=== PATIENT | female | born 2000 | race American Indian/Alaskan Native ===

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

== ENCOUNTER 2020-07-26 22:48 | Inpatient (IN) | payer MEDICAID ==
[2020-07-26] MEDS: Lactated Ringers 1,000 ML IV SCH (23:20)
[2020-07-26] MEDS ORDERED: Clindamycin Phosphate 900 MG in Sodium Chloride 0.9% 100 ML IV ONE (23:27)
[2020-07-27] MEDS ORDERED: Carboprost Tromethamine 250 MCG/1 ML Amp IM PRN ×2 (00:07→07:39)
[2020-07-27] MEDS ORDERED: Misoprostol 400 MCG (4 X 100 MCG TAB) RECTAL PRN ×2 (00:07→07:39)
[2020-07-27] MEDS ORDERED: fentaNYL 100 MCG/2 ML SDV IVPUSH PRN (00:07)
[2020-07-27] MEDS ORDERED: Ondansetron 4 MG/2 ML SDV IVPUSH PRN (00:07)
[2020-07-27] MEDS ORDERED: Lactated Ringers 1,000 ML IV ONE (00:07)
[2020-07-27] MEDS ORDERED: Methylergonovine 0.2 MG/1 ML Amp IM PRN (00:07)
[2020-07-27] MEDS ORDERED: Tranexamic Acid 1,000 MG in Sodium Chloride 0.9% 100 ML IV PRN ×2 (00:07→07:39)
[2020-07-27] MEDS ORDERED: Lidocaine 1% 30 ML SDV INJECT PRN (00:07)
[2020-07-27] MEDS ORDERED: Sodium Chloride 0.9% 10 ML Syringe FLUSH PRN ×2 (00:07→07:39)
[2020-07-27] MEDS ORDERED: Acetaminophen 325 MG Tab PO PRN ×2 (00:07→07:39)
[2020-07-27] MEDS ORDERED: fentaNYL 100 MCG/2 ML SDV ONE ×2 (00:09→03:53)
[2020-07-27] MEDS ORDERED: Oxytocin/Normal Saline 30 UNIT/500 ML BAG IV SCH (00:15)
[2020-07-27] MEDS ORDERED: Diphtheria,Pertussis(Acell),Tetanus Vaccine 0.5 ML SDV IM ONE (00:24)
--- NOTE | 2020-07-27 01:42 | HP ---
CHIEF COMPLAINT: Increased force and frequency of contractions. HISTORY OF PRESENT ILLNESS: A 20-year-old 1, para 0, currently at 39- 0/7 weeks' gestation, presents to Labor and Delivery reporting contractions starting around 7 o'clock in the evening that have become closer and stronger together. No leakage of fluid. No vaginal bleeding. movement has been good, and she reports overall an uncomplicated without symptoms of preeclampsia. She does have an intermittent cough, but denies any other known COVID potential symptoms. OBSTETRICAL HISTORY: Last menstrual period 11/02/2019. EDC 08/08/2020, however, working due date is an 11-week 5-day ultrasound with EDC 08/02/2020. She has chronic hepatitis C. Last quantitative HCG I saw was back in December. She has had nothing recent. She is admitting to use of tobacco, methamphetamine, and marijuana. Otherwise, no specific risk factors identified. OBSTETRICAL LABS: Blood type O positive. Antibody screen negative. Rubella nonimmune. Syphilis serology was nonreactive. Hepatitis B negative. HIV negative. Gonorrhea and chlamydia negative. Hepatitis C was reactive. Wet prep was positive for clue cells and yeast back in December. Only visits were at [facility], [address] Kraus, [address] Tate. The patient denies any visits out of [place]. PAST MEDICAL HISTORY: 1. Chronic hepatitis C without complications. 2. Polysubstance use, marijuana, and methamphetamine. 3. Tobacco abuse. FAMILY HISTORY: One sister with a history of miscarriages. Otherwise, reports siblings, parents, and grandparents are all alive and well. No history of any bleeding problems, clotting disorders, or defects. PAST SURGICAL HISTORY: None. SOCIAL HISTORY: Lives at [address] [place] [address], [address] in [place]. Stays with her sister and brother. There are no pets in the home. Father of the baby is Magdaleno Tellez. He is aware and will be involved with , but freedom she is asking for her mother to be here as her labor support person. She is currently unemployed. Reports that she is not working with [employer] or any other specific social programs. MEDICATION: vitamin 1 daily. ALLERGIES: Amoxicillin without known reaction. REVIEW OF SYSTEMS: As per the history of present illness. She denies any fevers, chills, nausea, vomiting, diarrhea, constipation, skin rashes, headaches, blurry vision, right upper quadrant pain, lower extremity edema, or any other symptoms of illness. OBJECTIVE: Vital Signs: Blood pressure 167/98, pulse of 86, temperature is 99.4, recheck blood pressure 149/91. HEENT: Grossly unremarkable. Neck: Supple. No adenopathy. Heart: Regular without murmur. Lungs: Clear to auscultation bilaterally with intermittent cough. Abdomen: Gravid, soft, nontender. Positive bowel sounds. Baby is cephalic. heart tones tracing 150 beats per minute at baseline. Moderate beat-to- beat variability with accelerations noted when we are able to trace baby well. [place] showing contractions every minute and a half to 2 minutes. Cervix is 2.5 cm dilated, 95% effaced, very posterior. Bag of munoz is intact. Extremities: No edema, erythema, or tenderness noted. Neurological: No obvious focal deficits. LABORATORY DATA: White blood cell count 14.5, hemoglobin 11.9, hematocrit 35.7, and platelet count 347. Rapid COVID test is negative. ASSESSMENT: 1. 39-0/7 weeks' intrauterine in active labor. 2. Methamphetamine use reported last 2 days ago. 3. Marijuana use, reportedly used once weekly. 4. Smoker 1/2 pack per day. 5. Chronic hepatitis C without known complication. No recent quantitative level. 6. Rubella nonimmune. The patient reports she did receive her Tdap and influenza vaccines this season. Most recent recheck blood pressure 162/108. PLAN: The patient admitted to Labor and Delivery with an anticipation of normal progression of labor. We will have the preeclampsia labs and verify if she is preeclamptic or not. The patient was seen yesterday on Labor and Delivery and discharged home assumingly with normal blood pressures at that time, but we will review those records to verify. Blood pressure was 129/87 yesterday. So, hopefully this is just a pain response and not preeclampsia. [facility] /[id number]
[2020-07-27] MEDS ORDERED: Labetalol 20 MG/4 ML Syringe IVPUSH ONE (01:43)
[2020-07-27] MEDS ORDERED: EPINEPHrine 1 MG/1 ML Amp ONE ×2 (03:50→03:53)
[2020-07-27] MEDS ORDERED: fentaNYL 100 MCG/2 ML SDV ITHECAL ONE (03:50)
[2020-07-27] MEDS: Lactated Ringers 1,000 ML IV SCH (04:14)
--- NOTE | 2020-07-27 04:34 | PCM.PRNOTE ---
- Free Text/Narrative Note: Requested to provide analgesia to full term patient in severe pain. Upon entering the room, patient is sitting on edge of bed complaining of severe abdominal/pelvic pain and discomfort. Procedure was discussed with patient including adverse outcomes and expectations. Pt consented to analgesia, SAB/IT. Pt placed into a proper sitting position. Landmarks for SAB/IT were identified and marked. Hands were washed and appropriate PPE was applied. Back was prepped with betadine x3. A sterile, transparent, fenestrated drape was applied. Excess betadine was removed. Using 3 mL of a 1% lidocaine solution, a skin wheel was placed at the L2/L3 interspace. A 24 ga (4 inch) [place] spinal needle was inserted until positive for CSF. Negative for heme or paresthesias. Injected fentanyl 20 mcg, sufentanil 20 mcg, and 7.5 mg of a 0.75% bupivacaine solution with an epi wash. Pt was placed left lateral tilt position for approximately 20 minutes. There were zero complications or adverse outcomes. Will continue to monitor. Procedure Date & Time: 07/27/20 [id number]
[2020-07-27] MEDS ORDERED: Simethicone 80 MG Tab.Chew PO PRN (07:39)
[2020-07-27] MEDS ORDERED: Benzocaine/Menthol 20%-0.5% Spray 56 GM Canister TOP PRN (07:39)
[2020-07-27] MEDS ORDERED: Oxytocin 10 Units/1 ML SDV IM PRN (07:39)
[2020-07-27] MEDS ORDERED: Measles, Mumps & Rubella Vaccine 0.5 ML SDV SUBCUT ONE (07:39)
--- NOTE | 2020-07-27 09:55 | DEL ---
DATE: 07/27/2020 PREPROCEDURE DIAGNOSES: 1. 39-1/7 weeks' intrauterine based on 11-week 5-day ultrasound. 2. 1, para 0. 3. Chronic hepatitis C. 4. Use of marijuana and methamphetamine. 5. Smoker. 6. Blood type O positive, rubella nonimmune, and group B strep status unknown. 7. Insufficient care. 8. Mild preeclampsia. 9. Light meconium-stained fluid. POSTPROCEDURE DIAGNOSES: 1. 39-1/7 weeks' intrauterine based on 11-week 5-day ultrasound. 2. 1, now para 1-0-0-1. 3. Status post spontaneous vaginal delivery with bilateral labial laceration repairs. 4. Chronic hepatitis C. 5. Use of marijuana and methamphetamine. 6. Smoker. 7. Blood type O positive, rubella nonimmune, and group B strep status unknown. 8. Insufficient care. 9. Mild preeclampsia. 10.Light meconium-stained fluid. ANESTHESIA: Intrathecal. BRIEF HISTORY: A 20-year-old female with the above-listed diagnoses presented to the hospital in active labor, which was allowed to progress. When she reached 5 cm dilated, intrathecal was performed, and she went on to spontaneous rupture of membranes within approximately 1 hour of actual delivery. Fluid was noted to be light meconium stained. At that time, her cervix was 8 cm dilated and she went on to complete. Within about a half an hour after that, pushed for about 15 minutes after a 12-hour total labor course and had an uncomplicated spontaneous vaginal delivery with details below. Please see her admission history and physical for full details. DELIVERY DETAILS: The patient in dorsal lithotomy position, she delivered a viable male in the OA position. was dried, stimulated, and placed up on mother's abdomen and bulb suctioned. Three-vessel umbilical cord was doubly clamped and cut after a delay. Cord blood sample was then obtained and placenta delivered by gentle cord traction and concomitant uterine massage intact after about 3 minutes. Next, the vagina was inspected and bleeding controlled with fundal massage and running Pitocin . Two labial lacerations were noted. Each repaired with 4-0 Vicryl running suture in the usual fashion and good reapproximation and hemostasis. The patient tolerated her procedures well and is staying in the delivery room with the baby. COMPLICATIONS: None. ESTIMATED BLOOD LOSS: 500 mL. FINDINGS: Viable male . scores of 8 and 8. weight 3000 g. Weighing 6 pounds 10 ounces. [facility] /[id number]
[2020-07-27] MEDS: Ferrous Sulfate 325 MG Tab PO SCH (10:51)
[2020-07-27] MEDS: Prenatal Multivitamin with Calcium/Folic Acid/Iron Tab PO SCH (10:52)
[2020-07-28] MEDS: Docusate Sodium 100 MG Cap PO PRN (09:06)
[2020-07-28] MEDS: Ferrous Sulfate 325 MG Tab PO SCH (09:06)
[2020-07-28] MEDS: Prenatal Multivitamin with Calcium/Folic Acid/Iron Tab PO SCH (09:07)
[2020-07-28] MEDS: Ibuprofen 800 MG Tab PO PRN (09:07)
--- NOTE | 2020-07-28 11:34 | PN ---
DATE: 07/28/2020 SUBJECTIVE: day #1. The patient reports that she is doing well, ambulating, tolerating regular diet. No foul-smelling drainage or discharge. Bleeding has been well controlled. No chest pain or shortness of breath. No symptoms of preeclampsia. She basically slept throughout yesterday and throughout the night, so she really has not been up to record filing clerk her symptoms very much. Reported that she has had pretty minimal contact with her baby and has not really asked for him to be in the room. Social Service has not been by to discuss disposition, and the patient really has no other complaints. OBJECTIVE: General: Pleasant, well-appearing 20-year-old female, appears older than her stated age. Vital Signs: Latest blood pressure 125/74, yesterday 140s over 77 to 92, temperature currently 99.2, pulse 91, respiratory rate 18, O2 saturations 100% on room air. Heart: Regular without obvious murmur. Lungs: Clear to auscultation bilaterally. Abdomen: Soft, nontender. Positive bowel sounds. Fundus firm and below the umbilicus. Extremities: No edema, erythema, or tenderness noted. LABORATORY DATA: CBC: WBCs down to 12.2, hemoglobin 10.5, platelets 346. ASSESSMENT: 1. Postvaginal delivery, day #1, doing well. 2. 1, now para 1-0-0-1. 3. Chronic hepatitis C. 4. History of marijuana and methamphetamine use. 5. Smoker. 6. Blood type O positive, rubella nonimmune, and group B Streptococcus status is positive. Please see culture report. 7. Insufficient care. 8. Mild preeclampsia. 9. Productive cough. PLAN: The patient did report that she was diagnosed with laryngitis prior to admission to the hospital and she has asked her mother to bring her prescribed medications including an antibiotic. Advised the patient that when her mother does bring those medications, my nurse needs to know what they are, so that we can write appropriate orders for her to take her own home medications and verify that they will not interact significantly with anything we are giving her. Anticipate discharge home tomorrow. I spent some time this morning discussing signs and symptoms of infection and preeclampsia and reasons to return to the clinic or emergency department and I also advised the patient that Electrical Foreman will be visiting with her about disposition of her baby. [facility] /[id number]
[2020-07-29] MEDS: Ibuprofen 800 MG Tab PO PRN (10:18)
[2020-07-29] MEDS: Prenatal Multivitamin with Calcium/Folic Acid/Iron Tab PO SCH (10:18)
[2020-07-29] MEDS: Docusate Sodium 100 MG Cap PO PRN (10:18)
[2020-07-29] MEDS: Ferrous Sulfate 325 MG Tab PO SCH (10:20)
[2020-07-29 11:20] VITALS: BP 108/69; PULSE 100
== END 2020-07-29 14:00 | disposition home or self-care (01) | DRG 806 ==
LOC: DL.OBCHECK 22:48 → DL.OB 23:41 → EEVIPCON 07-27 07:01 → OBSVTOIN 07-27 07:01
PROVIDERS: ADMIT Family Medicine; ATTEND Family Medicine
PROC: 10E0XZZ Delivery of Products of Conception, External Approach (ICD-10-PCS; principal; 2020-07-27)
PROC: 4A1HXCZ Monitoring of Products of Conception, Cardiac Rate, External Approach (ICD-10-PCS; 2020-07-27)
PROC: 0HQ9XZZ Repair Perineum Skin, External Approach (ICD-10-PCS; 2020-07-27)
DX: O99.334 Smoking (tobacco) complicating childbirth (principal); O98.52 Other viral diseases complicating childbirth; Z37.0 Single live birth; F17.210 Nicotine dependence, cigarettes, uncomplicated; B18.2 Chronic viral hepatitis C; O14.04 Mild to moderate pre-eclampsia, complicating childbirth; O99.824 Streptococcus B carrier state complicating childbirth; O99.324 Drug use complicating childbirth; F15.90 Other stimulant use, unspecified, uncomplicated; F12.90 Cannabis use, unspecified, uncomplicated; O77.0 Labor and delivery complicated by meconium in amniotic fluid; Z3A.39 39 weeks gestation of pregnancy; O70.0 First degree perineal laceration during delivery; Z20.828 Contact with and (suspected) exposure to other viral communicable diseases
CPT/HCPCS: 01967; 36415; 59409; 80305-QW; 81003; 82565; 82570; 83615; 84156; 84450; 84460; 84520; 84550; 85027; 87522; 90471; 90707; A9270-GY; J0171; J2405; J2590; J3010; J3490; J7050; J7120; U0002

== ENCOUNTER 2021-04-20 13:43 | Emergency (ER) | payer MEDICAID ==
[2021-04-20 15:18] VITALS: BP 111/73; PULSE 87
[2021-04-20] MEDS ORDERED: cefTRIAXone 500 MG, Lidocaine 1% 1 ML IM ONE ×2 (16:00)
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
== END 2021-04-20 16:45 | disposition home or self-care (01) ==
LOC: DL.ED 13:43
DX: T76.21XA Adult sexual abuse, suspected, initial encounter (principal); Z20.2 Contact with and (suspected) exposure to infections with a predominantly sexual mode of transmission; Z72.0 Tobacco use; Z88.0 Allergy status to penicillin
CPT/HCPCS: 96372; 99283; 99284; J0696

== ENCOUNTER 2021-05-14 06:42 | Emergency (ER) | payer MEDICAID ==
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
[2021-05-14 07:23] VITALS: BP 119/79; PULSE 88
== END 2021-05-14 07:21 | disposition home or self-care (01) ==
LOC: DL.ED 06:42
DX: T63.441A Toxic effect of venom of bees, accidental (unintentional), initial encounter (principal); Z88.0 Allergy status to penicillin; Z72.0 Tobacco use
CPT/HCPCS: 99281; 99282

== ENCOUNTER → 2021-08-25 21:16 | Emergency (ER) | payer MEDICAID | END | disposition left against medical advice (07) | LOC: DL.ED 21:16 | DX: Z53.21 Procedure and treatment not carried out due to patient leaving prior to being seen by health care provider (principal) ==

== ENCOUNTER 2022-02-24 05:26 | Emergency (ER) | payer MEDICAID | END 2022-02-24 05:45 | disposition left against medical advice (07) | LOC: DL.ED 05:26 | DX: F10.10 Alcohol abuse, uncomplicated (principal); Z88.0 Allergy status to penicillin | CPT/HCPCS: 99284 ==

== ENCOUNTER 2022-02-26 02:44 | Emergency (ER) | payer MEDICAID ==
[2022-02-26 04:34] VITALS: BP 119/80; PULSE 72
== END 2022-02-26 05:04 | disposition home or self-care (01) ==
LOC: DL.ED 02:44
DX: S02.19XA Other fracture of base of skull, initial encounter for closed fracture (principal); S62.613A Displaced fracture of proximal phalanx of left middle finger, initial encounter for closed fracture; S62.625A Displaced fracture of middle phalanx of left ring finger, initial encounter for closed fracture; S00.83XA Contusion of other part of head, initial encounter; Z88.0 Allergy status to penicillin; Y04.0XXA Assault by unarmed brawl or fight, initial encounter
CPT/HCPCS: 36415; 70486; 73140-F3; 80307; 99284-25

== ENCOUNTER 2023-03-26 22:29 | Observation (INO) | payer MEDICAID ==
[2023-03-26 22:50] LABS: HEMATOCRIT 34.6 % (37.0-47.0); HEMOGLOBIN 11.4 g/dL (12.0-16.0); MEAN CORPUSCULAR HEMOGLOBIN 28.5 pg (27.0-34.0); MEAN CORPUSCULAR HGB CONC 32.9 g/dL (33.0-35.0); MEAN CORPUSCULAR VOLUME 86.5 fL (80-100); WHITE BLOOD CELL COUNT,WBC 9.8 10^3/uL (5.0-10.0)
[2023-03-26 22:56] LABS: APPEARANCE,URINE CLOUDY (CLEAR); BILIRUBIN,URINE NEGATIVE (NEGATIVE); COLOR,URINE YELLOW (YELLOW); GLUCOSE,URINE NEGATIVE (NEGATIVE); KETONES,URINE TRACE (NEGATIVE); LEUKOCYTE ESTERASE,URINE MODERATE (NEGATIVE); NITRITE,URINE POSITIVE (NEGATIVE); OCCULT BLOOD,URINE NEGATIVE (NEGATIVE); PROTEIN,URINE TRACE (NEGATIVE); UROBILINOGEN,URINE 0.2 mg/dL (0.2-1.0)
[2023-03-26 23:03] LABS: AMPHETAMINES,URINE NEGATIVE (NEGATIVE); BARBITURATES,URINE NEGATIVE (NEGATIVE); BENZODIAZEPINE,URINE NEGATIVE (NEGATIVE); MDMA (ECSTASY), URINE NEGATIVE (NEGATIVE); METHADONE,URINE NEGATIVE (NEGATIVE); METHAMPHETAMINES,URINE NEGATIVE (NEGATIVE); OPIATES,URINE NEGATIVE (NEGATIVE); OXYCODONE,URINE NEGATIVE (NEGATIVE); PHENCYCLIDINE,URINE NEGATIVE (NEGATIVE); TCA,URINE NEGATIVE (NEGATIVE)
[2023-03-26 23:04] LABS: BACTERIA,URINE MANY /HPF (0-FEW/HPF); EPITHELIAL CELLS,URINE MODERATE /HPF (NOT SEEN); MUCUS,URINE FEW /LPF (NOT SEEN); RBC,URINE 0-5 /HPF (0-5); WBC,URINE 40-50 /HPF (0-5/HPF)
[2023-03-26] MEDS: Nicotine 14 MG/24 Hr Patch TRDERM SCH (23:31)
[2023-03-26] MEDS: metroNIDAZOLE 250 MG Tab PO SCH (23:56)
[2023-03-26] MEDS: Nitrofurantoin Monohydrate/Macrocrystalline 100 MG Cap PO SCH (23:56)
[2023-03-27] MEDS ORDERED: Aspirin 81 MG Tab.EC PO SCH (08:00)
[2023-03-27] MEDS: Nitrofurantoin Monohydrate/Macrocrystalline 100 MG Cap PO SCH (09:13)
[2023-03-27] MEDS: Nicotine 14 MG/24 Hr Patch TRDERM SCH (09:13)
[2023-03-27] MEDS: metroNIDAZOLE 250 MG Tab PO SCH (09:13)
[2023-03-27 10:45] VITALS: BP 100/60; PULSE 78
[2023-03-28 12:46] LABS: C.TRACHOMATIS BY TMA Positive (Negative); N.GONORRHOEAE BY TMA Negative (Negative); SOURCE Genital
[2023-03-29 08:27] LABS: HBSAG SCREEN Negative (Negative)
[2023-03-31 22:46] LABS: HCV LOG10 5.117; HEPATITIS C GENOTYPE 1a; HEPATITIS C QUANTITATION 131000 IU/mL
== END 2023-03-27 10:45 | disposition home or self-care (01) ==
LOC: DL.OBCHECK 22:29 → DL.OB 23:34 → UNDOADMOB 03-27 00:10 → DL.OB 03-27 00:10
PROVIDERS: ADMIT Family Medicine; ATTEND Family Medicine
DX: O46.92 Antepartum hemorrhage, unspecified, second trimester (principal); O99.322 Drug use complicating pregnancy, second trimester; F15.10 Other stimulant abuse, uncomplicated; F12.10 Cannabis abuse, uncomplicated; O99.312 Alcohol use complicating pregnancy, second trimester; F10.10 Alcohol abuse, uncomplicated; Z88.0 Allergy status to penicillin; Z3A.20 20 weeks gestation of pregnancy
CPT/HCPCS: 36415; 76805; 80305; 80307; 81001; 85027; 86592; 86762; 86803; 86850; 86900; 86901; 87086; 87088; 87186; 87210; 87340; 87389; 87491; 87522; 87591; A9270; G0378

== ENCOUNTER 2023-03-29 21:10 | Emergency (ER) | payer MEDICAID ==
[2023-03-29 21:28] VITALS: BP 125/79; PULSE 106
== END 2023-03-29 21:54 | disposition home or self-care (01) ==
LOC: DL.ED 21:10
DX: Z02.89 Encounter for other administrative examinations (principal); O99.312 Alcohol use complicating pregnancy, second trimester; F10.929 Alcohol use, unspecified with intoxication, unspecified; Z3A.19 19 weeks gestation of pregnancy; Z88.0 Allergy status to penicillin
CPT/HCPCS: 99283

== ENCOUNTER 2023-07-30 06:47 | Inpatient (IN) | payer BC, MEDICAID ==
[2023-07-30] MEDS ORDERED: fentaNYL 100 MCG/2 ML SDV ONE (07:08)
[2023-07-30] MEDS ORDERED: Benzocaine/Menthol 20%-0.5% Spray 78 GM Cannister TOP PRN (07:27)
[2023-07-30] MEDS ORDERED: Simethicone 80 MG Tab.Chew PO PRN (07:27)
[2023-07-30] MEDS ORDERED: Lidocaine 1% 30 ML SDV INJECT ONE (07:27)
[2023-07-30] MEDS ORDERED: Ondansetron 4 MG/2 ML SDV IVPUSH PRN (07:27)
[2023-07-30] MEDS ORDERED: Methylergonovine 0.2 MG/1 ML Amp IM PRN (07:27)
[2023-07-30] MEDS ORDERED: Misoprostol 400 MCG (4 X 100 MCG TAB) RECTAL PRN ×2 (07:27)
[2023-07-30] MEDS ORDERED: Acetaminophen 325 MG Tab PO PRN ×2 (07:27)
[2023-07-30] MEDS ORDERED: Carboprost Tromethamine 250 MCG/1 ML Amp IM PRN ×2 (07:27)
[2023-07-30] MEDS ORDERED: Sodium Chloride 0.9% 10 ML Syringe FLUSH PRN (07:27)
[2023-07-30] MEDS ORDERED: Oxytocin 10 Units/1 ML SDV IM PRN (07:27)
[2023-07-30] MEDS ORDERED: Tranexamic Acid 1,000 MG in Sodium Chloride 0.9% 100 ML IV PRN ×4 (07:27)
[2023-07-30] MEDS ORDERED: Oxytocin/Normal Saline 30 UNIT/500 ML BAG IV SCH (07:30)
[2023-07-30] MEDS ORDERED: Witch Hazel Medicated Pads 100/Jar TOP PRN (08:16)
[2023-07-30] MEDS: Prenatal Multivitamin with Calcium/Folic Acid/Iron Tab PO SCH (08:26)
[2023-07-30] MEDS: Ibuprofen 800 MG Tab PO PRN (08:26)
[2023-07-30] MEDS: Lactated Ringers 1,000 ML IV SCH ×2 (08:30→12:00)
[2023-07-30] MEDS: Doxycycline Monohydrate 100 MG Cap PO SCH ×2 (08:44→21:12)
[2023-07-30] MEDS: Nicotine 14 MG/24 Hr Patch TRDERM SCH (08:47)
[2023-07-30 08:54] LABS: HEMATOCRIT 34.9 % (37.0-47.0); HEMOGLOBIN 11.4 g/dL (12.0-16.0); MEAN CORPUSCULAR HEMOGLOBIN 27.5 pg (27.0-34.0); MEAN CORPUSCULAR HGB CONC 32.7 g/dL (33.0-35.0); MEAN CORPUSCULAR VOLUME 84.1 fL (80-100); RED BLOOD CELL COUNT 4.15 10^6/uL (4.2-5.4); WHITE BLOOD CELL COUNT,WBC 14.9 10^3/uL (5.0-10.0)
[2023-07-30 09:46] LABS: BARBITURATES,URINE NEGATIVE (NEGATIVE); BENZODIAZEPINE,URINE NEGATIVE (NEGATIVE); MDMA (ECSTASY), URINE NEGATIVE (NEGATIVE); METHADONE,URINE NEGATIVE (NEGATIVE); METHAMPHETAMINES,URINE POSITIVE (NEGATIVE); OPIATES,URINE NEGATIVE (NEGATIVE); TCA,URINE NEGATIVE (NEGATIVE)
[2023-07-30 09:47] LABS: AMPHETAMINES,URINE POSITIVE (NEGATIVE); OXYCODONE,URINE NEGATIVE (NEGATIVE); PHENCYCLIDINE,URINE NEGATIVE (NEGATIVE)
[2023-07-30] MEDS ORDERED: Naloxone 2 MG/2 ML Syringe IVPUSH PRN (11:05)
[2023-07-30] MEDS ORDERED: HYDROmorphone 2 MG/ML Syringe IVPUSH ONE (11:05)
[2023-07-30] MEDS: metroNIDAZOLE/Normal Saline 500 MG in Premix Bag 1 BAG IV SCH ×2 (12:00→21:15)
[2023-07-30] MEDS ORDERED: Clindamycin in 0.9 % Sod Chlor 900 MG in Premix Bag 1 BAG IV SCH ×2 (13:00)
[2023-07-30] MEDS: CLINDAMYCIN IV SCH ×6 (14:42→22:20)
[2023-07-30] MEDS: [UNRECOGNIZED DRUG - OTHER] IV SCH ×6 (14:42→22:20)
[2023-07-30] MEDS: SOD CHLOR IV SCH ×6 (14:42→22:20)
[2023-07-31] MEDS: [UNRECOGNIZED DRUG - OTHER] IV SCH ×3 (06:08)
[2023-07-31] MEDS: SOD CHLOR IV SCH ×3 (06:08)
[2023-07-31] MEDS: CLINDAMYCIN IV SCH ×3 (06:08)
[2023-07-31 06:19] LABS: HEMATOCRIT 30.3 % (37.0-47.0); HEMOGLOBIN 9.8 g/dL (12.0-16.0); MEAN CORPUSCULAR HEMOGLOBIN 27.1 pg (27.0-34.0); MEAN CORPUSCULAR HGB CONC 32.3 g/dL (33.0-35.0); MEAN CORPUSCULAR VOLUME 83.7 fL (80-100); PLATELET COUNT,PLT 258 10^3/uL (150-450); RED BLOOD CELL COUNT 3.62 10^6/uL (4.2-5.4); WHITE BLOOD CELL COUNT,WBC 13.4 10^3/uL (5.0-10.0)
[2023-07-31 06:35] LABS: BASOPHILS PERCENT AUTO 0.3 % (0.0-1.0); EOSINOPHILS PERCENT AUTO 1.3 % (1.0-3.0); LYMPHOCYTES PERCENT AUTO 28.6 % (20.5-50.1); MONOCYTES PERCENT AUTO 5.8 % (2-8)
[2023-07-31 06:39] LABS: ALBUMIN 1.3 g/dL (3.4-5.0); BILIRUBIN TOTAL 0.7 mg/dL (0.2-1.0); BUN/CREATININE RATIO 14.7 (No establ ref range); CALCIUM 7.5 mg/dL (8.5-10.1); CREATININE 0.68 mg/dL (0.55-1.02); EST CRCL DRUG DOSING (CG) 111.11 mL/min; PROTEIN TOTAL,TP 5.4 g/dL (6.4-8.2)
[2023-07-31 06:43] LABS: A/G RATIO 0.32
[2023-07-31 07:05] LABS: EOSINOPHILS PERCENT MAN 1 % (1-3); LYMPHOCYTES PERCENT MAN 26 % (20-50); MONOCYTES PERCENT MAN 2 % (2-8); SEG NEUTROPHILS PERCENT MAN 71 % (42-75)
[2023-07-31 07:06] LABS: ANISOCYTOSIS 2+ MODERATE; HYPOCHROMASIA 1+ SLIGHT; STOMATOCYTES FEW
[2023-07-31] MEDS: Ibuprofen 800 MG Tab PO PRN ×2 (09:26→22:12)
[2023-07-31] MEDS: metroNIDAZOLE/Normal Saline 500 MG in Premix Bag 1 BAG IV SCH ×2 (09:26→21:03)
[2023-07-31] MEDS: Doxycycline Monohydrate 100 MG Cap PO SCH ×2 (09:26→21:00)
[2023-07-31] MEDS: Docusate Sodium 100 MG Cap PO PRN ×2 (09:26→22:13)
[2023-07-31] MEDS: Prenatal Multivitamin with Calcium/Folic Acid/Iron Tab PO SCH (09:26)
[2023-07-31] MEDS: Nicotine 14 MG/24 Hr Patch TRDERM SCH (10:55)
[2023-07-31] MEDS: Clindamycin in 0.9 % Sod Chlor 900 MG in Premix Bag 1 BAG IV SCH ×4 (13:50→22:11)
[2023-07-31] MEDS ORDERED: Clindamycin in 0.9 % Sod Chlor 900 MG in Premix Bag 1 BAG IV SCH ×2 (14:00)
[2023-08-01] MEDS: Clindamycin in 0.9 % Sod Chlor 900 MG in Premix Bag 1 BAG IV SCH ×2 (06:00)
[2023-08-01 06:26] LABS: BASOPHILS PERCENT AUTO 0.3 % (0.0-1.0); EOSINOPHILS PERCENT AUTO 2.5 % (1.0-3.0); HEMOGLOBIN 9.7 g/dL (12.0-16.0); LYMPHOCYTES PERCENT AUTO 28.2 % (20.5-50.1); MEAN CORPUSCULAR HEMOGLOBIN 27.3 pg (27.0-34.0); MEAN CORPUSCULAR HGB CONC 32.3 g/dL (33.0-35.0); MEAN CORPUSCULAR VOLUME 84.5 fL (80-100); MONOCYTES PERCENT AUTO 6.1 % (2-8); NEUTROPHILS PERCENT AUTO 62.9 % (42.2-75.2); PLATELET COUNT,PLT 277 10^3/uL (150-450); RED BLOOD CELL COUNT 3.55 10^6/uL (4.2-5.4); WHITE BLOOD CELL COUNT,WBC 12.4 10^3/uL (5.0-10.0)
[2023-08-01] MEDS: Doxycycline Monohydrate 100 MG Cap PO SCH (08:34)
[2023-08-01] MEDS: Prenatal Multivitamin with Calcium/Folic Acid/Iron Tab PO SCH (08:34)
[2023-08-01] MEDS: Nicotine 14 MG/24 Hr Patch TRDERM SCH (08:37)
[2023-08-01] MEDS: metroNIDAZOLE/Normal Saline 500 MG in Premix Bag 1 BAG IV SCH (09:02)
[2023-08-01] MEDS ORDERED: Diphtheria,Pertussis(Acell),Tetanus Vaccine 0.5 ML Syringe IM ONE (12:41)
[2023-08-01 14:15] VITALS: BP 117/79; PULSE 94
[2023-08-02 12:47] LABS: HBSAG SCREEN Negative (Negative)
== END 2023-08-01 14:10 | disposition home or self-care (01) | DRG 805 ==
LOC: DL.OB 06:47 → OBSVTOIN 06:47
PROVIDERS: ADMIT Student in an Organized Health Care Education/Training Program; ATTEND Student in an Organized Health Care Education/Training Program
PROC: 10E0XZZ Delivery of Products of Conception, External Approach (ICD-10-PCS; principal; 2023-07-30)
PROC: 3E033VJ Introduction of Other Hormone into Peripheral Vein, Percutaneous Approach (ICD-10-PCS; 2023-07-30)
PROC: 3E0DXGC Introduction of Other Therapeutic Substance into Mouth and Pharynx, External Approach (ICD-10-PCS; 2023-07-30)
DX: O98.42 Viral hepatitis complicating childbirth (principal); O41.1230 Chorioamnionitis, third trimester, not applicable or unspecified; Z37.0 Single live birth; O99.324 Drug use complicating childbirth; O86.4 Pyrexia of unknown origin following delivery; F15.90 Other stimulant use, unspecified, uncomplicated; B18.2 Chronic viral hepatitis C; O16.4 Unspecified maternal hypertension, complicating childbirth; O99.334 Smoking (tobacco) complicating childbirth; F17.210 Nicotine dependence, cigarettes, uncomplicated; O98.82 Other maternal infectious and parasitic diseases complicating childbirth; A59.9 Trichomoniasis, unspecified; Z3A.37 37 weeks gestation of pregnancy; Z71.1 Person with feared health complaint in whom no diagnosis is made; Z28.39 Other underimmunization status
CPT/HCPCS: 36415; 59409; 80053; 80305-QW; 85025; 85027; 86592; 86762; 86850; 86900; 86901; 87040; 87340; 87389; 87522; 90471; 90715; A9270-GY; G0008; J1170; J1580; J2590; J3010; J3490; J7120

== ENCOUNTER 2023-09-14 02:54 | Emergency (ER) | payer MEDICAID ==
[2023-09-14] MEDS ORDERED: Sodium Chloride 0.9% 10 ML Syringe FLUSH PRN (03:08)
[2023-09-14 03:17] LABS: BASOPHILS PERCENT AUTO 0.8 % (0.0-1.0); EOSINOPHILS PERCENT AUTO 2.9 % (1.0-3.0); HEMATOCRIT 31.9 % (37.0-47.0); HEMOGLOBIN 9.4 g/dL (12.0-16.0); LYMPHOCYTES PERCENT AUTO 37.1 % (20.5-50.1); MEAN CORPUSCULAR HEMOGLOBIN 24.4 pg (27.0-34.0); MEAN CORPUSCULAR HGB CONC 29.5 g/dL (33.0-35.0); MEAN CORPUSCULAR VOLUME 82.6 fL (80-100); MONOCYTES PERCENT AUTO 8.5 % (2-8); NEUTROPHILS PERCENT AUTO 50.7 % (42.2-75.2); PLATELET COUNT,PLT 422 10^3/uL (150-450); RED BLOOD CELL COUNT 3.86 10^6/uL (4.2-5.4); WHITE BLOOD CELL COUNT,WBC 8.7 10^3/uL (5.0-10.0)
[2023-09-14 03:27] LABS: A/G RATIO 0.64; ALBUMIN 2.8 g/dL (3.4-5.0); ANION GAP 14.5 mEq/L (7-13); BILIRUBIN TOTAL 1.4 mg/dL (0.2-1.0); BUN/CREATININE RATIO 10.5 (No establ ref range); C-REACTIVE PROTEIN 0.71 ng/dL (<=0.50); CALCIUM 8.4 mg/dL (8.5-10.1); CREATININE 0.86 mg/dL (0.55-1.02); EST CRCL DRUG DOSING (CG) 84.16 mL/min; MAGNESIUM 1.6 mg/dL (1.8-2.4); POTASSIUM,K 3.5 mmol/L (3.5-5.1); PROTEIN TOTAL,TP 7.2 g/dL (6.4-8.2)
[2023-09-14 03:30] LABS: LACTIC ACID 1.8 mmol/L (0.4-2.0)
[2023-09-14] MEDS ORDERED: Sodium Chloride 0.9% 1,000 ML IV ONE ×2 (03:36→04:56)
[2023-09-14 03:54] LABS: CORONAVIRUS COVID-19 NAA NEGATIVE (NEGATIVE); INFLUENZA A NAA NEGATIVE (NEGATIVE); INFLUENZA B NAA NEGATIVE (NEGATIVE)
[2023-09-14] MEDS ORDERED: LORazepam 2 MG/ML SDV IVPUSH ONE ×2 (04:17→05:29)
[2023-09-14] MEDS ORDERED: Iopamidol 755 Mg/ML 100 ML Bottle IVPUSH ONE (04:25)
[2023-09-14 04:43] LABS: APPEARANCE,URINE CLEAR (CLEAR); BILIRUBIN,URINE SMALL (NEGATIVE); COLOR,URINE DARK YELLOW (YELLOW); GLUCOSE,URINE NEGATIVE (NEGATIVE); KETONES,URINE NEGATIVE (NEGATIVE); LEUKOCYTE ESTERASE,URINE NEGATIVE (NEGATIVE); NITRITE,URINE NEGATIVE (NEGATIVE); OCCULT BLOOD,URINE NEGATIVE (NEGATIVE); PROTEIN,URINE 100 (NEGATIVE)
[2023-09-14 04:46] LABS: AMPHETAMINES,URINE POSITIVE (NEGATIVE); BARBITURATES,URINE NEGATIVE (NEGATIVE); BENZODIAZEPINE,URINE NEGATIVE (NEGATIVE); MDMA (ECSTASY), URINE NEGATIVE (NEGATIVE); METHADONE,URINE NEGATIVE (NEGATIVE); METHAMPHETAMINES,URINE POSITIVE (NEGATIVE); OPIATES,URINE NEGATIVE (NEGATIVE); OXYCODONE,URINE NEGATIVE (NEGATIVE); PHENCYCLIDINE,URINE NEGATIVE (NEGATIVE); TCA,URINE NEGATIVE (NEGATIVE)
[2023-09-14 04:53] LABS: RBC,URINE 0-5 /HPF (0-5)
[2023-09-14 04:54] LABS: BACTERIA,URINE FEW /HPF (0-FEW/HPF); EPITHELIAL CELLS,URINE MANY /HPF (NOT SEEN); MUCUS,URINE MODERATE /LPF (NOT SEEN)
[2023-09-14] MEDS ORDERED: Ketamine 500 mg/10 ML MDV IV ONE (04:57)
[2023-09-14] MEDS ORDERED: guaiFENesin/Dextromethorphan 100-10 MG/5 ML Soln 5 ML Cup PO ONE (05:14)
[2023-09-14] MEDS ORDERED: Benzonatate 100 MG Cap PO ONE (05:14)
[2023-09-14] MEDS ORDERED: Lidocaine 2% 20 ML MDV ONE (05:17)
[2023-09-14] MEDS ORDERED: Lidocaine 1% 5 ML VIAL ONE (05:28)
[2023-09-14 05:43] VITALS: BP 136/109; PULSE 126
[2023-09-14] MEDS ORDERED: HYDROmorphone 0.5 MG/0.5 ML Syringe IVPUSH ONE ×2 (05:48→06:48)
[2023-09-14] MEDS ORDERED: Lactated Ringers 1,000 ML IV ONE (12:24)
== END 2023-09-14 12:56 | disposition other institution (70) ==
LOC: DL.ED 02:54
DX: K81.0 Acute cholecystitis (principal); Z88.0 Allergy status to penicillin
CPT/HCPCS: 0240U; 36415; 71275; 76705; 80053; 80305-QW; 80307; 81001; 83605; 83735; 85025; 85379; 86140; 96361; 96374; 96375; 96376; 99284; 99285-25; A9270-GY; J1170; J2060; J3490; J7030; J7120; Q9967

== ENCOUNTER 2023-10-17 04:38 | Inpatient (IN) | payer MEDICAID ==
[2023-10-17 02:10] LABS: HEMATOCRIT 31.7 % (37.0-47.0); HEMOGLOBIN 9.7 g/dL (12.0-16.0); MEAN CORPUSCULAR HEMOGLOBIN 23.3 pg (27.0-34.0); MEAN CORPUSCULAR HGB CONC 30.6 g/dL (33.0-35.0); MEAN CORPUSCULAR VOLUME 76.2 fL (80-100); PLATELET COUNT,PLT 351 10^3/uL (150-450); RED BLOOD CELL COUNT 4.16 10^6/uL (4.2-5.4)
[2023-10-17 02:27] LABS: BASOPHILS PERCENT AUTO 0.6 % (0.0-1.0); EOSINOPHILS PERCENT AUTO 1.3 % (1.0-3.0); LYMPHOCYTES PERCENT AUTO 33.7 % (20.5-50.1); MONOCYTES PERCENT AUTO 7.3 % (2-8); NEUTROPHILS PERCENT AUTO 57.1 % (42.2-75.2)
[2023-10-17 02:28] LABS: ALANINE AMINOTRANSFERASE,ALT 30 U/L (14-59); ALBUMIN 3.2 g/dL (3.4-5.0); ALKALINE PHOSPHATASE 116 U/L (46-116); AMYLASE 26 U/L (25-115); ANION GAP 16.7 mEq/L (7-13); ASPARTATE AMNIOTRANSFERASE,AST 43 U/L (15-37); BILIRUBIN TOTAL 1.7 mg/dL (0.2-1.0); BLOOD UREA NITROGEN,BUN 12 mg/dL (7-18); BUN/CREATININE RATIO 14.1 (No establ ref range); CALCIUM 8.3 mg/dL (8.5-10.1); CARBON DIOXIDE,CO2 21 mmol/L (21-32); CHLORIDE,CL 104 mmol/L (98-107); CREATININE 0.85 mg/dL (0.55-1.02); EST CRCL DRUG DOSING (CG) 85.15 mL/min; GLUCOSE RANDOM 86 mg/dL (70-99); LIPASE 42 U/L (16-77); POTASSIUM,K 3.7 mmol/L (3.5-5.1); PROTEIN TOTAL,TP 7.8 g/dL (6.4-8.2); SODIUM,NA 138 mmol/L (136-145)
[2023-10-17 02:31] LABS: HCG QUALITATIVE,SERUM NEGATIVE (NEGATIVE); LACTIC ACID 1.3 mmol/L (0.4-2.0)
[2023-10-17 02:32] LABS: C-REACTIVE PROTEIN < 0.50 ng/dL (<=0.50); ESTIMATED GFR 99 mL/min (>=60); ETHANOL BLOOD MEDICAL < 3 mg/dL (0)
[2023-10-17 02:38] LABS: APPEARANCE,URINE CLEAR (CLEAR); BILIRUBIN,URINE NEGATIVE (NEGATIVE); COLOR,URINE YELLOW (YELLOW); GLUCOSE,URINE NEGATIVE (NEGATIVE); KETONES,URINE NEGATIVE (NEGATIVE); LEUKOCYTE ESTERASE,URINE NEGATIVE (NEGATIVE); NITRITE,URINE NEGATIVE (NEGATIVE); OCCULT BLOOD,URINE NEGATIVE (NEGATIVE); PROTEIN,URINE 30 (NEGATIVE); UROBILINOGEN,URINE 0.2 mg/dL (0.2-1.0)
[2023-10-17 02:42] LABS: AMPHETAMINES,URINE NEGATIVE (NEGATIVE); BARBITURATES,URINE NEGATIVE (NEGATIVE); BENZODIAZEPINE,URINE NEGATIVE (NEGATIVE); MDMA (ECSTASY), URINE NEGATIVE (NEGATIVE); METHADONE,URINE NEGATIVE (NEGATIVE); METHAMPHETAMINES,URINE NEGATIVE (NEGATIVE); OPIATES,URINE NEGATIVE (NEGATIVE); OXYCODONE,URINE NEGATIVE (NEGATIVE); PHENCYCLIDINE,URINE NEGATIVE (NEGATIVE); TCA,URINE NEGATIVE (NEGATIVE)
[2023-10-17 02:55] LABS: BACTERIA,URINE FEW /HPF (0-FEW/HPF); EPITHELIAL CELLS,URINE MODERATE /HPF (NOT SEEN); MUCUS,URINE MODERATE /LPF (NOT SEEN); RBC,URINE 0-5 /HPF (0-5); WBC,URINE 0-5 /HPF (0-5/HPF)
[2023-10-17 03:26] LABS: EOSINOPHILS PERCENT MAN 1 % (1-3); LYMPHOCYTES PERCENT MAN 32 % (20-50); MONOCYTES PERCENT MAN 4 % (2-8); NRBC MANUAL 2 /100WBC; SEG NEUTROPHILS PERCENT MAN 62 % (42-75)
[~2023-10-17 04:38] MED LIST: HYDROmorphone 1 MG/ML Syringe IVPUSH ONE; Iopamidol 612 MG/ML 100 ML Bottle IVPUSH ONE; Ondansetron 4 MG/2 ML SDV IVPUSH ONE; diphenhydrAMINE 50 MG/ML SDV IVPUSH ONE
[2023-10-17] MEDS ORDERED: hydrOXYzine HCl 25 MG Tab PO ONE (05:39)
[2023-10-17] MEDS ORDERED: Naloxone 2 MG/2 ML Syringe IVPUSH PRN (05:41)
[2023-10-17] MEDS ORDERED: Ondansetron 4 MG/2 ML SDV IVPUSH PRN (05:41)
[2023-10-17] MEDS ORDERED: Sodium Chloride 0.9% 10 ML Syringe FLUSH PRN (05:41)
[2023-10-17] MEDS ORDERED: Polyethylene Glycol 3350 Powder 17 GM Packet PO PRN (05:41)
[2023-10-17] MEDS ORDERED: Acetaminophen 325 MG Tab PO PRN (05:41)
[2023-10-17] MEDS ORDERED: HYDROmorphone 0.5 MG/0.5 ML Syringe IVPUSH PRN (05:41)
[2023-10-17] MEDS ORDERED: Albuterol/Ipratropium 3.0-0.5 MG/3 ML Neb Soln NEB PRN (05:41)
[2023-10-17] MEDS ORDERED: Sennosides/Docusate Sodium 50-8.6 MG Tab PO PRN (05:41)
[2023-10-17] MEDS ORDERED: Magnesium Hydroxide 400 MG/5 ML Susp 30 ML Cup PO PRN (05:41)
[2023-10-17] MEDS ORDERED: MVI, Adult with Vitamin K 10 ML, Folic Acid 1 MG, Thiamine 100 MG in Lactated Ringers 1... IV ONE ×4 (06:49)
[2023-10-17] MEDS ORDERED: Thiamine 100 MG in Sodium Chloride 0.9% 100 ML IV ONE (06:50)
[2023-10-17] MEDS: Acetaminophen/oxyCODONE 325-5 MG Tab PO PRN ×3 (08:15→20:03)
[2023-10-17] MEDS: Cholestyramine/Sucrose Powder 4 GM Packet PO SCH (10:08)
[2023-10-17] MEDS: Sodium Chloride 0.9% 10 ML Syringe FLUSH SCH ×2 (10:08→21:14)
[2023-10-17] MEDS ORDERED: hydrOXYzine HCl 25 MG Tab PO PRN (12:00)
[2023-10-18] MEDS: Folic Acid 1 MG Tab PO SCH ×2 (01:02→08:23)
[2023-10-18] MEDS: Acetaminophen/oxyCODONE 325-5 MG Tab PO PRN ×2 (02:07→09:41)
[2023-10-18 06:25] LABS: EOSINOPHILS PERCENT AUTO 1.2 % (1.0-3.0); HEMATOCRIT 30.1 % (37.0-47.0); LYMPHOCYTES PERCENT AUTO 35.7 % (20.5-50.1); MEAN CORPUSCULAR HEMOGLOBIN 22.9 pg (27.0-34.0); MEAN CORPUSCULAR HGB CONC 29.9 g/dL (33.0-35.0); MEAN CORPUSCULAR VOLUME 76.6 fL (80-100); MONOCYTES PERCENT AUTO 6.5 % (2-8); NEUTROPHILS PERCENT AUTO 55.9 % (42.2-75.2); PLATELET COUNT,PLT 348 10^3/uL (150-450); RED BLOOD CELL COUNT 3.93 10^6/uL (4.2-5.4); WHITE BLOOD CELL COUNT,WBC 8.4 10^3/uL (5.0-10.0)
[2023-10-18 06:30] LABS: BASOPHILS PERCENT AUTO 0.7 % (0.0-1.0)
[2023-10-18 06:40] LABS: ALBUMIN 2.6 g/dL (3.4-5.0); BILIRUBIN TOTAL 2.6 mg/dL (0.2-1.0); BUN/CREATININE RATIO 18.8 (No establ ref range); C-REACTIVE PROTEIN 0.71 ng/dL (<=0.50); CREATININE 0.96 mg/dL (0.55-1.02); EST CRCL DRUG DOSING (CG) 75.39 mL/min; MAGNESIUM 1.7 mg/dL (1.8-2.4); PROTEIN TOTAL,TP 6.6 g/dL (6.4-8.2)
[2023-10-18 06:41] LABS: A/G RATIO 0.65
[2023-10-18] MEDS ORDERED: Magnesium Sulfate/Water 2 GM in Premix Bag 1 BAG IV ONE (07:22)
[2023-10-18] MEDS: Cholestyramine/Sucrose Powder 4 GM Packet PO SCH (08:22)
[2023-10-18] MEDS: Sodium Chloride 0.9% 10 ML Syringe FLUSH SCH (08:26)
[2023-10-18] MEDS ORDERED: Metoprolol Succinate 25 MG Tab.ER PO SCH (09:00)
[2023-10-18] MEDS ORDERED: Apixaban 5 MG Tab PO SCH (09:00)
[2023-10-18] MEDS ORDERED: Furosemide 80 MG Tab PO SCH (09:00)
[2023-10-18] MEDS ORDERED: Non-Formulary Medication 1 Each (Potassium Chloride [Potassium Chloride] 20 MEQ Tab.Er.Prt PO SCH (09:00)
[2023-10-18 12:38] VITALS: BP 106/55; PULSE 93
[2023-10-18] MEDS ORDERED: busPIRone 15 MG Tab PO SCH (14:00)
[2023-10-18] MEDS ORDERED: Multivitamin Tab PO SCH (21:00)
== END 2023-10-18 12:48 | disposition home or self-care (01) | DRG 440 ==
LOC: DL.ED 04:38 → DL.MS 04:39 → DL.ED 04:46
PROVIDERS: ADMIT Internal Medicine; ATTEND Internal Medicine
DX: K85.90 Acute pancreatitis without necrosis or infection, unspecified (principal); K85.20 Alcohol induced acute pancreatitis without necrosis or infection; K81.9 Cholecystitis, unspecified; K70.31 Alcoholic cirrhosis of liver with ascites; I51.7 Cardiomegaly; R16.0 Hepatomegaly, not elsewhere classified; K76.0 Fatty (change of) liver, not elsewhere classified; Z91.199 Patient's noncompliance with other medical treatment and regimen due to unspecified reason; Z88.0 Allergy status to penicillin; F10.10 Alcohol abuse, uncomplicated; I51.4 Myocarditis, unspecified; F17.210 Nicotine dependence, cigarettes, uncomplicated; D50.9 Iron deficiency anemia, unspecified; E80.6 Other disorders of bilirubin metabolism; R79.89 Other specified abnormal findings of blood chemistry; E88.09 Other disorders of plasma-protein metabolism, not elsewhere classified; F19.10 Other psychoactive substance abuse, uncomplicated; Z88.1 Allergy status to other antibiotic agents; Z79.899 Other long term (current) drug therapy; Z87.440 Personal history of urinary (tract) infections
CPT/HCPCS: 36415; 71045; 74177; 80053; 80305; 80307; 81001; 82150; 83605; 83690; 83880; 84145; 84703; 85025; 86140; 93005; 93010; 96374; 96375; 99285 ×2; J1170; J1200; J2405; Q9967; 73030-RT; 83735; A9270-GY; J3411; J3475; J3490; J7120

== ENCOUNTER 2023-10-24 21:49 | Emergency (ER) | payer MEDICAID ==
[2023-10-24 22:08] VITALS: BP 118/85; PULSE 124
[2023-10-24] MEDS ORDERED: Sodium Chloride 0.9% 1,000 ML IV ONE (22:29)
[2023-10-24] MEDS ORDERED: Benzonatate 100 MG Cap PO ONE (22:30)
[2023-10-24] MEDS ORDERED: Codeine/guaiFENesin 10-100 MG/5 ML Syrup 5 ML Cup PO ONE (22:30)
[2023-10-24] MEDS ORDERED: Benzonatate 100 MG Cap ONE (22:45)
[2023-10-24 22:53] LABS: BASOPHILS PERCENT AUTO 0.3 % (0.0-1.0); EOSINOPHILS PERCENT AUTO 2.5 % (1.0-3.0); HEMATOCRIT 31.3 % (37.0-47.0); HEMOGLOBIN 9.5 g/dL (12.0-16.0); LYMPHOCYTES PERCENT AUTO 26.2 % (20.5-50.1); MEAN CORPUSCULAR HEMOGLOBIN 22.2 pg (27.0-34.0); MEAN CORPUSCULAR HGB CONC 30.4 g/dL (33.0-35.0); MEAN CORPUSCULAR VOLUME 73.1 fL (80-100); MONOCYTES PERCENT AUTO 6.1 % (2-8); NEUTROPHILS PERCENT AUTO 64.9 % (42.2-75.2); PLATELET COUNT,PLT 463 10^3/uL (150-450); RED BLOOD CELL COUNT 4.28 10^6/uL (4.2-5.4); WHITE BLOOD CELL COUNT,WBC 11.8 10^3/uL (5.0-10.0)
[2023-10-24 22:59] LABS: ANION GAP 16.7 mEq/L (7-13); BILIRUBIN TOTAL 1.4 mg/dL (0.2-1.0); C-REACTIVE PROTEIN 0.6 ng/dL (<=0.50); EST CRCL DRUG DOSING (CG) 72.38 mL/min; POTASSIUM,K 3.7 mmol/L (3.5-5.1); PROTEIN TOTAL,TP 7.1 g/dL (6.4-8.2)
[2023-10-24 23:00] LABS: A/G RATIO 0.73
[2023-10-24] MEDS ORDERED: Take Home: Benzonatate 100 MG, 6 Cap Pack PO ONE (23:27)
[2023-10-24 23:45] LABS: CORONAVIRUS COVID-19 NAA NEGATIVE (NEGATIVE); INFLUENZA A NAA NEGATIVE (NEGATIVE); INFLUENZA B NAA NEGATIVE (NEGATIVE)
== END 2023-10-25 00:07 | disposition home or self-care (01) ==
LOC: DL.ED 21:49
DX: J06.9 Acute upper respiratory infection, unspecified (principal); I50.9 Heart failure, unspecified; Z88.0 Allergy status to penicillin
CPT/HCPCS: 0240U; 36415; 71046; 80053; 83605; 83880; 85025; 86140; 87040; 96360; 99284; 99284-25; A9270-GY; J7030

== ENCOUNTER 2023-11-08 01:42 | Emergency (ER) | payer MEDICAID ==
[2023-11-08 01:51] VITALS: BP 114/91; PULSE 114
[2023-11-08] MEDS: HYDROmorphone 0.5 MG/0.5 ML Syringe IVPUSH ONE (01:57)
[2023-11-08 02:05] LABS: BASOPHILS PERCENT AUTO 0.9 % (0.0-1.0); EOSINOPHILS PERCENT AUTO 1.4 % (1.0-3.0); HEMATOCRIT 29.8 % (37.0-47.0); HEMOGLOBIN 9.2 g/dL (12.0-16.0); LYMPHOCYTES PERCENT AUTO 34.5 % (20.5-50.1); MEAN CORPUSCULAR HEMOGLOBIN 21.6 pg (27.0-34.0); MEAN CORPUSCULAR HGB CONC 30.9 g/dL (33.0-35.0); MEAN CORPUSCULAR VOLUME 70.1 fL (80-100); MONOCYTES PERCENT AUTO 5.7 % (2-8); NEUTROPHILS PERCENT AUTO 57.5 % (42.2-75.2); PLATELET COUNT,PLT 440 10^3/uL (150-450); RED BLOOD CELL COUNT 4.25 10^6/uL (4.2-5.4); WHITE BLOOD CELL COUNT,WBC 9.2 10^3/uL (5.0-10.0)
[2023-11-08 02:18] LABS: ALANINE AMINOTRANSFERASE,ALT 37 U/L (14-59); ALBUMIN 3.2 g/dL (3.4-5.0); ALKALINE PHOSPHATASE 126 U/L (46-116); ASPARTATE AMNIOTRANSFERASE,AST 49 U/L (15-37); BILIRUBIN TOTAL 1.2 mg/dL (0.2-1.0); BLOOD UREA NITROGEN,BUN 11 mg/dL (7-18); BUN/CREATININE RATIO 14.1 (No establ ref range); CALCIUM 8.3 mg/dL (8.5-10.1); CARBON DIOXIDE,CO2 21 mmol/L (21-32); CHLORIDE,CL 102 mmol/L (98-107); CREATININE 0.78 mg/dL (0.55-1.02); GLUCOSE RANDOM 95 mg/dL (70-99); LIPASE 44 U/L (16-77); PROTEIN TOTAL,TP 7.7 g/dL (6.4-8.2); SODIUM,NA 136 mmol/L (136-145)
[2023-11-08 02:19] LABS: A/G RATIO 0.71; ESTIMATED GFR 109 mL/min (>=60)
== END 2023-11-08 03:45 | disposition home or self-care (01) ==
LOC: DL.ED 01:42
DX: K82.9 Disease of gallbladder, unspecified (principal); Z79.01 Long term (current) use of anticoagulants; Z79.899 Other long term (current) drug therapy; Z88.1 Allergy status to other antibiotic agents
CPT/HCPCS: 36415; 80053; 83690; 85025; 96374; 99283; 99284; J1170

== ENCOUNTER 2023-11-15 01:40 | Emergency (ER) | payer MEDICAID ==
[2023-11-15 02:00] VITALS: BP 103/68; PULSE 103
[2023-11-15 02:15] LABS: BASOPHILS PERCENT AUTO 0.9 % (0.0-1.0); EOSINOPHILS PERCENT AUTO 1.8 % (1.0-3.0); HEMATOCRIT 31.2 % (37.0-47.0); HEMOGLOBIN 9.5 g/dL (12.0-16.0); LYMPHOCYTES PERCENT AUTO 35.8 % (20.5-50.1); MEAN CORPUSCULAR HEMOGLOBIN 21.3 pg (27.0-34.0); MEAN CORPUSCULAR HGB CONC 30.4 g/dL (33.0-35.0); MONOCYTES PERCENT AUTO 7.5 % (2-8); PLATELET COUNT,PLT 398 10^3/uL (150-450); RED BLOOD CELL COUNT 4.46 10^6/uL (4.2-5.4); WHITE BLOOD CELL COUNT,WBC 9.6 10^3/uL (5.0-10.0)
[2023-11-15] MEDS: Sodium Chloride 0.9% 10 ML Syringe FLUSH PRN (02:18)
[2023-11-15 02:37] LABS: A/G RATIO 0.69; ALANINE AMINOTRANSFERASE,ALT 22 U/L (14-59); ALBUMIN 3.1 g/dL (3.4-5.0); ALKALINE PHOSPHATASE 125 U/L (46-116); AMYLASE 22 U/L (25-115); ANION GAP 13.6 mEq/L (7-13); ASPARTATE AMNIOTRANSFERASE,AST 33 U/L (15-37); BILIRUBIN TOTAL 1.9 mg/dL (0.2-1.0); BLOOD UREA NITROGEN,BUN 15 mg/dL (7-18); BUN/CREATININE RATIO 15.2 (No establ ref range); CALCIUM 8.4 mg/dL (8.5-10.1); CARBON DIOXIDE,CO2 25 mmol/L (21-32); CHLORIDE,CL 103 mmol/L (98-107); CREATININE 0.99 mg/dL (0.55-1.02); EST CRCL DRUG DOSING (CG) 73.11 mL/min; ESTIMATED GFR 82 mL/min (>=60); ETHANOL BLOOD MEDICAL 141 mg/dL (0); GLUCOSE RANDOM 99 mg/dL (70-99); INR 1.2 (0.9-1.2); LIPASE 40 U/L (16-77); MAGNESIUM 1.7 mg/dL (1.8-2.4); POTASSIUM,K 3.6 mmol/L (3.5-5.1); PROTEIN TOTAL,TP 7.6 g/dL (6.4-8.2); PROTHROMBIN TIME 12.3 SEC (9.0-12.0); PTT,PARTIAL THROMBOPLSTIN TIME 24.6 SEC (22.0-34.0); SODIUM,NA 138 mmol/L (136-145)
[2023-11-15 02:38] LABS: C-REACTIVE PROTEIN < 0.50 ng/dL (<=0.50)
[2023-11-15 02:39] LABS: LACTIC ACID 1.1 mmol/L (0.4-2.0)
[2023-11-15 02:40] LABS: BILIRUBIN,URINE SMALL (NEGATIVE); COLOR,URINE YELLOW (YELLOW); GLUCOSE,URINE NEGATIVE (NEGATIVE); KETONES,URINE TRACE (NEGATIVE); LEUKOCYTE ESTERASE,URINE NEGATIVE (NEGATIVE); NITRITE,URINE NEGATIVE (NEGATIVE); OCCULT BLOOD,URINE TRACE-INTACT (NEGATIVE); PH,URINE 5.5 (5.0-9.0); PROTEIN,URINE 100 (NEGATIVE)
[2023-11-15 02:41] LABS: AMPHETAMINES,URINE NEGATIVE (NEGATIVE); BARBITURATES,URINE NEGATIVE (NEGATIVE); BENZODIAZEPINE,URINE NEGATIVE (NEGATIVE); MDMA (ECSTASY), URINE NEGATIVE (NEGATIVE); METHADONE,URINE NEGATIVE (NEGATIVE); METHAMPHETAMINES,URINE NEGATIVE (NEGATIVE); OPIATES,URINE NEGATIVE (NEGATIVE); OXYCODONE,URINE NEGATIVE (NEGATIVE); PHENCYCLIDINE,URINE NEGATIVE (NEGATIVE); TCA,URINE NEGATIVE (NEGATIVE)
[2023-11-15 02:42] LABS: APPEARANCE,URINE SLIGHTLY CLOUDY (CLEAR)
[2023-11-15 02:45] LABS: B-TYPE NATRIURETIC PEPTIDE,BNP 1400 pg/ml (0-100)
[2023-11-15 02:45] LABS: RBC,URINE 0-5 /HPF (0-5); WBC,URINE 0-5 /HPF (0-5/HPF)
[2023-11-15 02:46] LABS: BACTERIA,URINE FEW /HPF (0-FEW/HPF); EPITHELIAL CELLS,URINE MANY /HPF (NOT SEEN); HYALINE CASTS,URINE FEW; MUCUS,URINE FEW /LPF (NOT SEEN)
[2023-11-15 02:49] LABS: CORONAVIRUS COVID-19 NAA NEGATIVE (NEGATIVE); INFLUENZA A NAA NEGATIVE (NEGATIVE); INFLUENZA B NAA NEGATIVE (NEGATIVE); RESPIRATORY SYNCYTIAL VIR NAA NEGATIVE (NEGATIVE)
[2023-11-15] MEDS ORDERED: methylPREDNISolone Sodium Succinate 125 MG/2 ML SDV IVPUSH ONE (03:41)
[2023-11-15] MEDS: Furosemide 40 MG/4 ML VIAL IV ONE (03:45)
[2023-11-15] MEDS: Dexamethasone 4 MG/ML SDV IVPUSH ONE (03:50)
== END 2023-11-15 04:01 | disposition home or self-care (01) ==
LOC: DL.ED 01:40
DX: R07.89 Other chest pain (principal); F10.920 Alcohol use, unspecified with intoxication, uncomplicated; Z88.0 Allergy status to penicillin; Z79.899 Other long term (current) drug therapy
CPT/HCPCS: 0241U; 36415; 71045; 80053; 80305; 80307; 81001; 81025; 82150; 83605; 83690; 83735; 83880; 84145; 84484; 85025; 85610; 85730; 86140; 93005; 93010; 96374; 96375; 99284; 99285; J1100; J1940; J3490

== ENCOUNTER 2024-03-16 15:50 | Emergency (ER) | payer MEDICAID ==
[2024-03-16 16:27] LABS: BASOPHILS PERCENT AUTO 0.7 % (0.0-1.0); LYMPHOCYTES PERCENT AUTO 21.4 % (20.5-50.1); MEAN CORPUSCULAR HEMOGLOBIN 20.1 pg (27.0-34.0); MEAN CORPUSCULAR HGB CONC 29.7 g/dL (33.0-35.0); MEAN CORPUSCULAR VOLUME 67.6 fL (80-100); MONOCYTES PERCENT AUTO 9.2 % (2-8); NEUTROPHILS PERCENT AUTO 67.7 % (42.2-75.2); PLATELET COUNT,PLT 291 10^3/uL (150-450); RED BLOOD CELL COUNT 2.99 10^6/uL (4.2-5.4)
[2024-03-16 16:33] LABS: HEMATOCRIT 20.2 % (37.0-47.0)
[2024-03-16] MEDS: Sodium Chloride 0.9% 1,000 ML IV ONE (16:38)
[2024-03-16 16:43] LABS: INR 1.3 (0.9-1.2); PROTHROMBIN TIME 12.9 SEC (9.0-12.0)
[2024-03-16 16:44] LABS: HCG QUALITATIVE,SERUM NEGATIVE (NEGATIVE)
[2024-03-16 16:49] LABS: ALANINE AMINOTRANSFERASE,ALT 32 U/L (14-59); ALBUMIN 2.4 g/dL (3.4-5.0); ALKALINE PHOSPHATASE 127 U/L (46-116); ANION GAP 14.5 mEq/L (7-13); ASPARTATE AMNIOTRANSFERASE,AST 63 U/L (15-37); BLOOD UREA NITROGEN,BUN 13 mg/dL (7-18); BUN/CREATININE RATIO 15.5 (No establ ref range); CALCIUM 7.9 mg/dL (8.5-10.1); CARBON DIOXIDE,CO2 24 mmol/L (21-32); CHLORIDE,CL 105 mmol/L (98-107); CREATININE 0.84 mg/dL (0.55-1.02); ETHANOL BLOOD MEDICAL 133 mg/dL (0); GLUCOSE RANDOM 101 mg/dL (70-99); MAGNESIUM 1.6 mg/dL (1.8-2.4); POTASSIUM,K 3.5 mmol/L (3.5-5.1); PROTEIN TOTAL,TP 6.1 g/dL (6.4-8.2); SODIUM,NA 140 mmol/L (136-145)
[2024-03-16 16:53] LABS: A/G RATIO 0.65; ESTIMATED GFR 100 mL/min (>=60)
[2024-03-16 16:58] LABS: AMPHETAMINES,URINE POSITIVE (NEGATIVE); BARBITURATES,URINE NEGATIVE (NEGATIVE); BENZODIAZEPINE,URINE NEGATIVE (NEGATIVE); MDMA (ECSTASY), URINE NEGATIVE (NEGATIVE); METHADONE,URINE NEGATIVE (NEGATIVE); METHAMPHETAMINES,URINE POSITIVE (NEGATIVE); OPIATES,URINE NEGATIVE (NEGATIVE); OXYCODONE,URINE NEGATIVE (NEGATIVE); PHENCYCLIDINE,URINE NEGATIVE (NEGATIVE); TCA,URINE NEGATIVE (NEGATIVE)
[2024-03-16 17:06] LABS: APPEARANCE,URINE CLEAR (CLEAR); BILIRUBIN,URINE SMALL (NEGATIVE); COLOR,URINE DARK YELLOW (YELLOW); GLUCOSE,URINE NEGATIVE (NEGATIVE); KETONES,URINE NEGATIVE (NEGATIVE); LEUKOCYTE ESTERASE,URINE NEGATIVE (NEGATIVE); NITRITE,URINE POSITIVE (NEGATIVE); OCCULT BLOOD,URINE TRACE-INTACT (NEGATIVE); PROTEIN,URINE TRACE (NEGATIVE)
[2024-03-16 17:18] LABS: BACTERIA,URINE FEW /HPF (0-FEW/HPF); EPITHELIAL CELLS,URINE MODERATE /HPF (NOT SEEN); MUCUS,URINE FEW /LPF (NOT SEEN); RBC,URINE 0-5 /HPF (0-5); WBC,URINE 0-5 /HPF (0-5/HPF)
[2024-03-16] MEDS: Magnesium Sulfate/Water 2 GM in Premix Bag 1 BAG IV ONE (17:25)
[2024-03-16] MEDS: Norepinephrine Bit/D5W Premix 250 ML IV SCH (17:25)
[2024-03-16] MEDS: Norepinephrine Bit/D5W Premix 250 ML ONE (17:35)
[2024-03-16] MEDS: Ciprofloxacin in D5W 400 MG in Premix Bag 1 BAG IV ONE (17:44)
[2024-03-16] MEDS: Tranexamic Acid 1,000 MG in Sodium Chloride 0.9% 100 ML IV ONE (17:55)
[2024-03-16 18:43] VITALS: BP 92/54; PULSE 110
== END 2024-03-16 18:05 ==
LOC: DL.ED 15:50
DX: A41.9 Sepsis, unspecified organism (principal); N93.9 Abnormal uterine and vaginal bleeding, unspecified; D64.9 Anemia, unspecified; N39.0 Urinary tract infection, site not specified; E83.42 Hypomagnesemia; F10.120 Alcohol abuse with intoxication, uncomplicated; I10 Essential (primary) hypertension; Y90.9 Presence of alcohol in blood, level not specified; Z86.16 Personal history of COVID-19; Z88.0 Allergy status to penicillin; Z79.01 Long term (current) use of anticoagulants; Z79.899 Other long term (current) drug therapy
CPT/HCPCS: 36415; 36430; 71045; 76856; 80053; 80305-QW; 80307; 81001; 83605; 83735; 84703; 85025; 85610; 86850; 86900; 86901; 86920; 86922; 87086; 87088; 87186; 93005; 96361; 96365; 96368; 96375; 99285; 99285-25; J0744; J3475; J3490; J7030; P9016

== ENCOUNTER 2024-04-13 15:21 | Inpatient (IN) | payer MEDICAID ==
[2024-04-13 15:42] LABS: HEMATOCRIT 27.4 % (37.0-47.0); HEMOGLOBIN 7.1 g/dL (12.0-16.0); MEAN CORPUSCULAR HGB CONC 25.9 g/dL (33.0-35.0); MEAN CORPUSCULAR VOLUME 81.1 fL (80-100); PLATELET COUNT,PLT 356 10^3/uL (150-450); RED BLOOD CELL COUNT 3.38 10^6/uL (4.2-5.4); WHITE BLOOD CELL COUNT,WBC 22.2 10^3/uL (5.0-10.0)
[2024-04-13 15:47] VITALS: BP 140/105; PULSE 104
[2024-04-13 15:47] LABS: BASOPHILS PERCENT AUTO 0.1 % (0.0-1.0); LYMPHOCYTES PERCENT AUTO 9.3 % (20.5-50.1); MONOCYTES PERCENT AUTO 9.3 % (2-8); NEUTROPHILS PERCENT AUTO 81.3 % (42.2-75.2)
[2024-04-13 15:56] LABS: ETHANOL BLOOD MEDICAL 27 mg/dL (0); MAGNESIUM 2.2 mg/dL (1.8-2.4)
[2024-04-13 15:59] LABS: APPEARANCE,URINE CLOUDY (CLEAR); BILIRUBIN,URINE NEGATIVE (NEGATIVE); COLOR,URINE YELLOW (YELLOW); GLUCOSE,URINE NEGATIVE (NEGATIVE); KETONES,URINE NEGATIVE (NEGATIVE); LEUKOCYTE ESTERASE,URINE NEGATIVE (NEGATIVE); NITRITE,URINE NEGATIVE (NEGATIVE); OCCULT BLOOD,URINE MODERATE (NEGATIVE); PH,URINE 5.5 (5.0-9.0); PROTEIN,URINE >=300 (NEGATIVE)
[2024-04-13 16:03] LABS: AMPHETAMINES,URINE NEGATIVE (NEGATIVE); BARBITURATES,URINE NEGATIVE (NEGATIVE); BENZODIAZEPINE,URINE NEGATIVE (NEGATIVE); MDMA (ECSTASY), URINE NEGATIVE (NEGATIVE); METHADONE,URINE NEGATIVE (NEGATIVE); METHAMPHETAMINES,URINE POSITIVE (NEGATIVE); OPIATES,URINE NEGATIVE (NEGATIVE); OXYCODONE,URINE NEGATIVE (NEGATIVE); PHENCYCLIDINE,URINE NEGATIVE (NEGATIVE); TCA,URINE NEGATIVE (NEGATIVE)
[2024-04-13 16:04] LABS: INR 2.3 (0.9-1.2); PROTHROMBIN TIME 22.9 SEC (9.0-12.0)
[2024-04-13 16:08] LABS: WBC,URINE 0-5 /HPF (0-5/HPF)
[2024-04-13 16:09] LABS: AMORPHOUS SEDIMENT,URINE MODERATE /HPF (NOT SEEN); BACTERIA,URINE MODERATE /HPF (0-FEW/HPF); EPITHELIAL CELLS,URINE MODERATE /HPF (NOT SEEN)
[2024-04-13 16:10] LABS: HCG QUALITATIVE,SERUM NEGATIVE (NEGATIVE)
[2024-04-13] MEDS: 50% Dextrose in Water 50 ML Syringe IVPUSH ONE (16:29)
[2024-04-13] MEDS: Furosemide 20 MG/2 ML VIAL IVPUSH ONE (16:29)
[2024-04-13 16:44] LABS: BAND PERCENT MAN 2 %; LYMPHOCYTES PERCENT MAN 10 % (20-50); MONOCYTES PERCENT MAN 8 % (2-8); SEG NEUTROPHILS PERCENT MAN 80 % (42-75)
[2024-04-13] MEDS: Ciprofloxacin in D5W 400 MG in Premix Bag 1 BAG IV ONE (16:45)
[2024-04-13 16:50] LABS: LACTIC ACID 18.1 mmol/L (0.4-2.0)
[2024-04-13] MEDS: Albuterol/Ipratropium 3.0-0.5 MG/3 ML Neb Soln NEB ONE (16:54)
[2024-04-13 17:45] LABS: BUN/CREATININE RATIO 10.7 (No establ ref range); EST CRCL DRUG DOSING (CG) 40.07 mL/min
[2024-04-13 18:14] LABS: ALANINE AMINOTRANSFERASE,ALT 280 U/L (14-59); ALKALINE PHOSPHATASE 126 U/L (46-116); BILIRUBIN TOTAL 5.7 mg/dL (0.2-1.0); CHLORIDE,CL 95 mmol/L (98-107); POTASSIUM,K 5.3 mmol/L (3.5-5.1); PROTEIN TOTAL,TP 7.9 g/dL (6.4-8.2); SODIUM,NA 131 mmol/L (136-145)
[2024-04-13 18:19] LABS: ANION GAP 36.30001 mEq/L (7-13); CARBON DIOXIDE,CO2 < 5 mmol/L (21-32); GLUCOSE RANDOM 51 mg/dL (70-99)
[2024-04-13 18:20] LABS: BLOOD UREA NITROGEN,BUN 18 mg/dL (7-18); CREATININE 1.69 mg/dL (0.55-1.02); ESTIMATED GFR 43 mL/min (>=60)
[2024-04-13 18:22] LABS: A/G RATIO 0.68; ALBUMIN 3.2 g/dL (3.4-5.0); ASPARTATE AMNIOTRANSFERASE,AST > 1000 U/L (15-37); CALCIUM 8.5 mg/dL (8.5-10.1)
[2024-04-13] MEDS: Furosemide 40 MG/4 ML VIAL IVPUSH ONE (19:58)
[2024-04-13 20:22] LABS: BASE EXCESS ARTERIAL -25 mmol/L ((-2)-(+3)); BICARBONATE,ARTERIAL 3.4 mmol/L (22-26); O2 DELIVERY DEVICE OM; O2 SATURATION ARTERIAL 98 % (95-100); PCO2 ARTERIAL 11 mmHg (35-45); PH,ARTERIAL 7.12 (7.35-7.45); PO2 ARTERIAL 109 mmHg (70-100)
[2024-04-13 20:23] LABS: ALLEN TEST Y
[2024-04-13] MEDS: Cefepime 1 GM Vial IVPUSH ONE (20:41)
== END 2024-04-13 21:45 | DRG 371 ==
LOC: DL.ED 15:21 → DL.MS 18:40
PROVIDERS: ADMIT Student in an Organized Health Care Education/Training Program; ATTEND Student in an Organized Health Care Education/Training Program
PROC: 4A033R1 Measurement of Arterial Saturation, Peripheral, Percutaneous Approach (ICD-10-PCS; principal; 2024-04-13)
PROC: 0T9B70Z Drainage of Bladder with Drainage Device, Via Natural or Artificial Opening (ICD-10-PCS; 2024-04-13)
DX: K65.2 Spontaneous bacterial peritonitis (principal); G92.8 Other toxic encephalopathy; I50.23 Acute on chronic systolic (congestive) heart failure; J96.92 Respiratory failure, unspecified with hypercapnia; N39.0 Urinary tract infection, site not specified; N17.9 Acute kidney failure, unspecified; D68.4 Acquired coagulation factor deficiency; F10.139 Alcohol abuse with withdrawal, unspecified; E87.1 Hypo-osmolality and hyponatremia; E87.20 Acidosis, unspecified; I11.0 Hypertensive heart disease with heart failure; I50.9 Heart failure, unspecified; B18.2 Chronic viral hepatitis C; F41.9 Anxiety disorder, unspecified; F32.A Depression, unspecified; K74.60 Unspecified cirrhosis of liver; F17.210 Nicotine dependence, cigarettes, uncomplicated; Q44.7 Other congenital malformations of liver; K70.30 Alcoholic cirrhosis of liver without ascites; D64.9 Anemia, unspecified; E87.5 Hyperkalemia; T43.655A Adverse effect of methamphetamines, initial encounter; R79.89 Other specified abnormal findings of blood chemistry; K72.90 Hepatic failure, unspecified without coma; F19.10 Other psychoactive substance abuse, uncomplicated; Z79.01 Long term (current) use of anticoagulants; F15.10 Other stimulant abuse, uncomplicated; E16.2 Hypoglycemia, unspecified; F17.200 Nicotine dependence, unspecified, uncomplicated; Z88.0 Allergy status to penicillin; Z79.899 Other long term (current) drug therapy; Z86.16 Personal history of COVID-19
CPT/HCPCS: 36415; 36600; 51702; 71045; 80053; 80305; 80307; 81001; 82803; 82947 ×3; 83605; 83735; 83880; 84484; 84703; 85025; 85610; 87040 ×2; 87635; 87804 ×2; 93005; 94640; 96365; 96375; 99285; J0744; J1940; 93010; 99223; J0692; J3370; J3490; J7050; J7620-GY; U0002

== ENCOUNTER 2024-10-21 13:41 | Emergency (ER) | payer MEDICAID ==
[2024-10-21 13:52] VITALS: BP 129/90; PULSE 69
== END 2024-10-21 15:08 | disposition home or self-care (01) ==
LOC: DL.ED 13:41
DX: J10.1 Influenza due to other identified influenza virus with other respiratory manifestations (principal); I11.0 Hypertensive heart disease with heart failure; I50.9 Heart failure, unspecified; Z88.0 Allergy status to penicillin; Z79.01 Long term (current) use of anticoagulants; Z86.16 Personal history of COVID-19; Z79.899 Other long term (current) drug therapy
CPT/HCPCS: 87428-QW; 99284